=== PATIENT | female | born 1975 | race Caucasian/White ===

== ENCOUNTER 2018-05-10 20:26 | Emergency (ER) | payer OTHER ==
--- NOTE | 2018-05-10 21:12 | EDPHY ---
H & P Smoking Status: Former smoker <Magy Lew S - Last Filed: 05/10/18 21:15> <Daily Hutton M - Last Filed: 05/17/18 10:01> Time Seen by Provider: 05/10/18 21:10 HPI/ROS: The patient is a 42 y/o female arriving emergently via EMS for a cardiac arrest. Per EMS the patient was at a mobile home office with her when she collapsed. When EMS arrived at 19:55, the patient was purple from the sternum up. Her believes the patient had a stoke several years ago. EMS states the patients pupils were pinpoint. While en route EMS gave the patient 2 of Narcan, bicarbonate, and 3 rounds of epinephrine with no change. Her last round of epinephrine was 2-3 minutes prior to arrival. There was a short episode of v-fib on the monitor and one shock was given. However the patient went back into asystole. (Magy Lew) Past Medical/Surgical History: Includes CVA Social history: The patient uses a some sort of substance that she heats up and sucks through a pip. It is orange in color. The does not know what it is. (Magy Lew) Physical Exam: GENERAL: CPR in progress. Cardiac arrest. Fan tube in place. HEENT: Blood from the Fan tube. Dilated and fixed pupils bilaterally. NECK: Trachea midline. No crepitus RESPIRATORY: Rales and rhonchi bilaterally. CVS: Asystole. ABDOMEN: Soft, nondistended. Obese. BACK: Not performed due to the patient's critical presentation. SKIN: Patient has purple discolored skin for the chest up. Warm. No petechiae. EXTREMITIES: No pedal edema. Right lower extremity IO placed. No track hunt. NEURO/PSYCH: GCS 3. Unresponsive. (Magy Lew S) Constitutional: Initial Vital Signs Heart Rate 0 L 05/10/18 20:27 Respiratory Rate 16 05/10/18 20:27 O2 Delivery Mode Bag Valve Mask O2 (L/minute) 100 Allergies/Adverse Reactions: Penicillins Allergy (Verified 10/23/15 18:05) Home Medications: Medication Instructions Recorded Bcp 10/23/15 Cyclobenzaprine [Flexeril] 10 mg PO TID #20 tab 10/23/15 Medical Decision Making <Magy Lew S - Last Filed: 05/10/18 21:15> <Daily Hutton M - Last Filed: 05/17/18 10:01> Procedures: Bedside ultrasound #1: Indication: cardiac arrest Patient had no cardiac activity. There is no visible pericardial effusion. Bedside ultrasound 2: Indication: Cardiac arrest Patient had no cardiac activity. There is no visible pericardial effusion. Indication for the procedure was cardiac arrest and poor patency through the Fan tube. The patient was orally endotracheally intubated using video laryngoscopy with a 7.5 ETT. There was significant blood in the airway. This required multiple episodes of suction with intermittent bag-valve mask ventilation. Immediate post ETT placement there is significant blood coming from the ET tube. The ET tube was suctioned. Placement was again confirmed under direct visualization. The tube was secured in place. Breath sounds were auscultated equally bilaterally. The procedure was performed by myself. (Magy Lew) ED Course/Re-evaluation: I met EMS on arrival. I took report from the fresh foods clerk. ACLS and CPR were continued. There was report that the patient had a low glucose in route. Patient did receive an amp of D50. Repeat glucose ordered. Pt given bicarb and epi. Initial bedside ultrasound was performed. There is no visible cardiac activity during CPR switch. Patient was noted to have significant bleeding from her the Fan tube. I checked compliance with the Fan tube. It seemed to be increased difficulty bagging. Because of this the Fan to was removed. Patient was ventilated with a bag-valve mask. Continue CPR without interruption in ET tube was placed. This was complicated by significant blood in the airway. Please refer to the note. Repeat epinephrine was given Patient's was in the room during the resuscitation. He was unable to give further history. Patient's potassium was 7.5. Patient was given Narcan 2 mg IV. Bedside ultrasound revealed no cardiac activity. The patient remained in asystole. 2041: Patient pronounced. I discussed this with the patient. I subsequently discussed this with the continuous washer operator's department the victims advocate. (Magy Lew) Differential Diagnosis: My differential includes but is not limited to pulmonary embolus, ACS, acute DE , pulmonary hemorrhage, drug use, overdose, CHF, electrolyte abnormality, sugar abnormality, dehydration, CVA, dissection, aneurysm (Magy Lew) Critical Care Time: The patient required 35 min of critical care time. This was exclusive of any unbundled procedure. This was due the patient's cardiac arrest, time spent at the bedside, discussion with the continuous washer operator's office, victims advocate, and family. (Magy Lew) Other Provider: Patient not seen by me. The scribe working with me on this particular date, Cherelle, helped scribe for Dr Lew during this patient encounter. (Daily Hutton) - Data Points Medications Given: Discontinued Medications Epinephrine HCl (Epinephrine) 2 mg IVP EDNOW ONE Stop: 05/10/18 21:30 Last Admin: 05/10/18 22:03 Dose: 2 mg Naloxone HCl (Narcan) 2 mg IVP EDNOW ONE Stop: 05/10/18 21:30 Last Admin: 05/10/18 22:04 Dose: 2 mg Sodium Bicarbonate (Sodium Bicarbonate) 50 meq IVP EDNOW ONE Stop: 05/10/18 21:30 Last Admin: 05/10/18 22:04 Dose: 50 meq Point of Care Test Results: Chemistry 05/10/18 05/10/18 20:46 20:34 POC Sodium 140 mEq/L mEq/L (135-145) POC Potassium 7.3 mEq/L H* mEq/L (3.3-5.0) POC Chloride 112 mEq/L H mEq/L (97-110) POC BUN 23 mg/dL mg/dL (7-23) POC Creatinine 0.7 mg/dL mg/dL (0.6-1.0) POC Glucose 41 mg/dL L mg/dL 252 mg/dL H mg/dL (70-100) (70-100) ISTAT H&H 05/10/18 20:46 POC Hgb 12.6 gm/dL gm/dL (12.6-16.3) POC Hct 37 % L % (38-47) Departure <Magy Lew - Last Filed: 05/10/18 21:15> <Daily Hutton - Last Filed: 05/17/18 10:01> - Departure Disposition: Clinical Impression: Cardiac arrest Condition: Critical Referrals: Patient,NotPresent [Primary Care Provider] - As per Instructions Report Scribed for: Magy Lew Report Scribed by: Cherelle Hodgson Date of Report: 05/12/18 Time of Report: 20:30 <Daily Hutton - Last Filed: 05/17/18 10:01>
[2018-05-10] MEDS ORDERED: EPINEPHrine 1 MG/10 ML SYR IVP ONE (21:29)
[2018-05-10] MEDS ORDERED: SODIUM BICARBONATE 50 MEQ/50 ML SYR IVP ONE (21:29)
[2018-05-10] MEDS ORDERED: NALOXONE HCL 0.4 MG/ML INJ IVP ONE (21:29)
== END 2018-05-10 20:42 | disposition expired ==
LOC: EDUNIT#
PROC: 0BH17EZ Insertion of Endotracheal Airway into Trachea, Via Natural or Artificial Opening (ICD-10-PCS; principal; 2018-05-10)
DX: I46.9 Cardiac arrest, cause unspecified (principal); Z86.73 Personal history of transient ischemic attack (TIA), and cerebral infarction without residual deficits; Z87.891 Personal history of nicotine dependence
CPT/HCPCS: 82435-PO; 82565-PO; 82947-PO; 84132-PO; 84295-PO; 84520-PO; 85014-PO; 96374